=== PATIENT | female | born 1945 | race Caucasian/White ===

== ENCOUNTER 2021-08-25 07:01 | Observation (INO) | payer MEDICARE, SELFPAY ==
[2021-08-25] VITALS (8 sets, daily range): BP systolic 126–166; BP diastolic 60–94; PULSE 60–75; RESP 16–18; TEMP 36.4–37.1; O2SAT 99–100
--- NOTE | ~2021-08-25 | US_ITS ---
EXAMINATION: US carotid duplex BI DATE: 08/25/2021 15:15 INDICATION: Facial weakness. TECHNIQUE: Grayscale, color Doppler, and pulsed Doppler images of the cervical carotid arteries were obtained. The degree of vessel stenosis is placed in one of the following categories: normal, <50%, 5 0-69%, >=70% but less than near-occlusion, near-occlusion, or total occlusion. Note that percent sten osis relative to normal distal artery lumen diameter is indirectly measured from velocity measurement s as described by Carmelo, et al. Radiology 2003; 229:340-346. COMPARISON: None. FINDINGS: RIGHT: The right common carotid artery (CCA) peak systolic velocity (PSV) is 94 cm/s. The right internal car otid artery (ICA) PSV is 89 cm/s. The right ICA end-diastolic velocity (EDV) is 18 cm/s. The right IC A/CCA PSV ratio is 1.0. Grayscale and color Doppler images yield an estimate of <50% diameter reducti on from plaque in the ICA. There is antegrade flow in the right vertebral artery. LEFT: The left CCA PSV is 89 cm/s. The left ICA PSV is 95 cm/s. The left ICA EDV is 20 cm/s. The left ICA/C CA PSV ratio is 1.4. Grayscale and color Doppler images yield an estimate of <50% diameter reduction from plaque in the ICA. There is antegrade flow in the left vertebral artery. IMPRESSION: 1. <50% stenosis in the right internal carotid artery. 2. <50% stenosis in the left internal carotid artery. Reviewed, dictated and finalized at location A.
--- NOTE | ~2021-08-25 | CT_ITS ---
EXAMINATION: CT abdomen pelvis wo con DATE: 08/25/2021 09:11 INDICATION: Nausea and vomiting TECHNIQUE: Computed tomography (CT) of the abdomen and pelvis was performed without intravenous contr ast. The dose-length product (DLP) was 266.52 mGy-cm. Automated exposure control and iterative recons truction technique were employed. COMPARISON: None FINDINGS: Minimal dependent atelectasis is present in the lung bases. The heart size is normal. There is calcified coronary artery atherosclerosis. A small sliding hiatal hernia is present. There appear s to be a lipoma of the distal esophagus, possibly in the wall of the distal esophagus. The gallbladd er is surgically absent. There is mild enlargement of the common bile duct and central intrahepatic d ucts which is likely due to post cholecystectomy state. Within the limitations of noncontrast examina tion, the liver, spleen, and adrenal glands are normal. There appear to be cystic lesions of the panc reas measuring up to 12 mm. 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 Th e kidneys are unremarkable. No pathologically enlarged abdominal or pelvic lymph nodes are identified . There is a large volume of stool in the rectum. There is antegrade intramedullary augusta and interlock ing intratrochanteric screw fixation of the left femur. There is no free intraperitoneal gas or evide nce of bowel obstruction. There is moderate lumbar spondylosis at L4-5. There are age-indeterminate b urst fractures of T12 and L1. IMPRESSION: 1. Fecal impaction of the rectum. 2. 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 3. Probable small cystic lesions of the pancreas. The differential diagnosis includes pseudocyst, int raductal papillary mucinous neoplasm (IPMN), mucinous cystic neoplasm (MCN), and the less common sero us cystadenoma and neuroendocrine tumor. Correlate for history of pancreatitis. Follow-up pancreas pr otocol CT or MRI in two years is recommended. 4. Indeterminate burst fractures of T12 and L1. Reviewed, dictated and finalized at location A. IMPRESSION: 1. Fecal impaction of the rectum. 2. 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 3. Probable small cystic lesions of the pancreas. The differential diagnosis in cludes pseudocyst, intraductal papillary mucinous neoplasm (IPMN), mucinous cys tic neoplasm (MCN), and the less common serous cystadenoma and neuroendocrine t umor. Correlate for history of pancreatitis. Follow-up pancreas protocol CT or MRI in two years is recommended. 4. Indeterminate burst fractures of T12 and L1.
--- NOTE | ~2021-08-25 | CT_ITS ---
EXAMINATION: CT brain wo con INDICATION: Dizziness and frequent falls COMPARISON: None TECHNIQUE: Standard unenhanced head CT. The dose-length product (DLP) was 605.33 mGy-cm. The mA was a djusted according to patient size. Iterative reconstruction technique was employed. FINDINGS: There is no acute intraparenchymal hemorrhage. No evidence of mass lesion. No evidence of a cute infarction. There is an old lacunar infarct of the right basal ganglia. There is mild periventri cular and subcortical hypodensity probably related to small vessel ischemic disease. There is mild pr ominence of the sulci and ventricles related to cerebral atrophy. Intracranial calcified cerebral ath erosclerosis is noted. There are no extra-axial collections. There is no mass effect or midline shift . Changes in the globes are likely from ocular lens surgery. There is mild mucosal thickening of the paranasal sinuses. IMPRESSION: 1. No acute intracranial abnormality. 2. Age related findings. Reviewed, dictated and finalized at location A.
--- NOTE | ~2021-08-25 | XR_ITS ---
EXAMINATION: XR barium swallow modified DATE: 08/26/2021 14:08 INDICATION: Dysphagia. TECHNIQUE: The patient was given barium-containing material of multiple consistencies to swallow by jan sloiman speech pathologist while I performed fluoroscopy. Dose-area product was 100 Gy-cm2. FINDINGS: Oral Stage: Within functional limits Pharyngeal Phase: Reduced laryngeal elevation Piriform sinus residue, mild Cervical/Esophageal Stage: Within functional limits IMPRESSION: Modified esophagram findings as above. Please [facility]. Reviewed, dictated and finalized at Location A. Reviewed, dictated and finalized at location A. IMPRESSION: Modified esophagram findings as above. Please refer to the speech t herapy report for specific recommendations.
--- NOTE | ~2021-08-25 | MR_ITS ---
EXAMINATION: MR brain/brain stem wo/w con DATE: 08/26/2021 12:56 INDICATION: Cerebral vascular accident. TECHNIQUE: Magnetic resonance imaging (MRI) of the abdomen was performed without and with 13 mL Multi Evelin intravenous contrast. COMPARISON: Head CT 04/27/2021 FINDINGS: There are foci of old blood products in right occipital lobe. There is an old infarct in right thalam us. There is a small old infarct in right internal capsule. There are scattered areas of nonspecific increased T2-weighted signal intensity in the cerebral white matter and simon. There is no acute ische cristi infarct or abnormal mass lesion. The ventricles are normal in size. The mastoid air cells are nor mal. There is mild mucosal thickening in the paranasal sinuses. There are likely changes of ocular le ns replacement surgeries. IMPRESSION: 1. 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 2. Moderate nonspecific cerebral white matter disease and pontine disease, which likely represents ch ronic small vessel ischemic disease. Reviewed, dictated and finalized at location A. IMPRESSION: 1. 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 2. Moderate nonspecific cerebral white matter disease and pontine disease, whic h likely represents chronic small vessel ischemic disease.
[2021-08-25 07:51] LABS: Lactic Acid Reflex 1.5 mmol/L (0.7-2.0)
[2021-08-25 07:52] LABS: Alanine Aminotransferase 10 U/L (6-35); Albumin Level 3.3 g/dL (3.5-5.1); Alkaline Phosphatase 71 U/L (38-126); Anion Gap 3 mmol/L (8-16); Aspartate Amino Transferase 18 U/L (14-36); Bilirubin,Total 0.2 mg/dL (0.2-1.3); Blood Urea Nitrogen 14 mg/dL (7-17); Calcium 8.8 mg/dL (8.4-10.2); Carbon Dioxide 28 mmol/L (22-30); Chloride 107 mmol/L (98-107); Estimated CRCL calculation 42 ml/min; Estimated Glomerular Filt Rate > 60; Glucose 110 mg/dL (65-110); Lipase 73 U/L (23-300); Potassium 3.5 mmol/L (3.4-5.0); Sodium 138 mmol/L (137-145)
--- NOTE | 2021-08-25 07:55 | ED.GENADULT ---
HPI - General Adult General Chief complaint: Nausea/Vomiting/Diarrhea Stated complaint: confused History of Present Illness HPI narrative: 75-year-old female history of dementia presenting to the emergency department from home for evaluation of nausea vomiting and constipation. Patient states that the symptoms started Thursday morning and have persisted. Patient denies any associate abdominal pain. Family states that the patient does have a significant history of falls and injuries. Family states that for the last 2 weeks the patient has been living at home with them. Daughter states that she feels she is unable to care for the patient at home at this time. Patient does have worsening dementia. Patient had been on medications for her dementia but due to her noncompliance the medication was stopped. Related Data Allergies Allergy/AdvReac Type Severity Reaction Status Date / Time sulfamethoxazole Allergy Intermediate RASH Verified 08/25/21 12:28 trimethoprim Allergy Intermediate RASH Verified 08/25/21 12:28 Review of Systems Review of Systems: CONSTITUTIONAL: Denies fever, chills, or sweats. EYES: Denies visual changes, redness, or discharge. ENT: Denies rhinorrhea, congestion, sore throat, or otalgia. CARDIOVASCULAR: Denies chest pain, palpitations, or edema. RESPIRATORY: Denies cough or dyspnea. GASTROINTESTINAL: Denies abdominal pain but has had intermittent nausea and constipation GENITOURINARY: Denies dysuria or hematuria. SKIN: Denies rash or itching. MUSCULOSKELETAL: Denies back pain, joint pain, or myalgia. NEUROLOGIC: Headache PSYCHIATRIC: Worsening dementia [facility] Past Medical History Medical History (Updated 08/25/21 @ 18:18 by Feliciano Marques MD) Coronary artery disease Dementia Surgical History Surgical History (Updated 08/25/21 @ 14:53 by Ely Delacruz APRN) History of appendectomy History of cataract removal with insertion of prosthetic lens History of cholecystectomy History of oophorectomy, unilateral History of total hip replacement Stented coronary artery Family History Family History (Updated 08/25/21 @ 15:09 by Li Farfan RN) Father Myocardial infarction complications Lung cancer Mother Diverticula of intestine Hypertension Diabetes mellitus Social History Social History (Updated 08/25/21 @ 14:54 by Ely Delacruz APRN) Smoking packs per day: 2 Smoking cigarettes per day: 40.0 Years smoked: 60 Smoking pack-years: 120.00 Smoking status: Current every day smoker Tobacco type: cigarettes Alcohol intake: never Substance use: never Spiritual care concerns: No Exam Narrative: APPEARANCE: Well appearing, no pain, no distress, well-nourished. HEAD: normocephalic, atraumatic. EYES: PERRLA/EOMI, conjunctivae clear. NECK: Supple. No adenopathy, no masses. RESPIRATORY: Airway patent, respirations nonlabored. Clear to auscultation bilaterally, no rales, rhonchi, wheezing. CARDIOVASCULAR: Regular rate and rhythm without murmurs rubs or gallops. ABDOMINAL: Soft, normal bowel sounds, some left lower quadrant tenderness to palpation. No rebound, no guarding. MUSCULOSKELETAL: Moves all extremities. Strength/ROM intact, No edema, No calf tenderness. NEURO: Alert. Left-sided facial droop. No other neurologic deficit noted SKIN: Warm, dry. Normal Color Course Course Emergency Course: CT scan showed fecal impaction of the rectum. Upon returning from CT patient did have a large bowel movement. On reexamination patient has no palpated stool in the rectum. Patient continues to deny abdominal pain. Patient does have some nausea but states she does feel improved. Family will be updated on the need for follow-up for her pancreatic cyst. Patient will be provided medication for nausea control. She will be updated on reasons to return to the emergency department. Patient is still having dizziness and nausea. Patient was unable to ambulate at baseline. Akash
[2021-08-25 07:56] LABS: Basophils Percent Auto 0.5 % (0.2-1.2); Eosinophils Absolute Auto 0.1 K/mm3 (0-0.3); Eosinophils Percent Auto 0.8 % (0-4.4); Hematocrit 40.1 % (37.0-47.0); Hemoglobin 12.9 g/dL (12.0-15.0); Immature Granulocyte Absolute 0.03 K/mm3 (0.00-0.031); Immature Granulocyte Percent A 0.4 % (0-0.5); Lymphocytes Absolute Auto 1.35 K/mm3 (0.9-3.2); Lymphocytes Percent Auto 17.5 % (18.3-44.2); Mean Corpuscular HGB Conc 32.2 g/dl (32-36); Mean Corpuscular Hemoglobin 31.4 pg (26-34); Mean Corpuscular Volume 97.6 fl (80-100); Mean Platelet Volume 11.2 fl (7.4-10.4); Monocytes Absolute Auto 0.9 K/mm3 (0.1-0.6); Monocytes Percent Auto 12.1 % (2.6-8.5); Neutrophils Absolute Auto 5.3 K/mm3 (1.3-6.7); Neutrophils Percent Auto 68.7 % (45.5-73.1); Platelet Count Result 220 k/mm3 (150-375); Red Blood Count 4.11 M/mm3 (4.2-5.4); Red Cell Distribution Width 14.1 % (11.5-14.5); White Blood Count 7.7 K/mm3 (4.5-10.0)
[2021-08-25 08:08] LABS: Appearance Urine Clear (Clear); Bilirubin Urine Negative (Negative); Blood Urine Negative (Negative); Color Urine Yellow (Yellow); Glucose Urine UA Negative (Negative); Ketones Urine Negative (Negative); Leukocyte Esterase Ur Negative LEU/UL (Negative); Nitrate Urine Negative (Negative); Protein Urine Negative (Negative); Specific Grav Ur 1.025 (1.001-1.035); Urobilinogen Urine 0.2 mg/dL (<2.0); pH Urine 5.5 (5.0-9.0)
[2021-08-25] MEDS: ONDANSETRON INJ 4 MG/2 ML VIAL IV PUSH (08:09)
[2021-08-25 08:11] LABS: Add Urine Microscopic? NO
--- NOTE | 2021-08-25 09:57 | PC.NURSE ---
pt had extra large BM
[2021-08-25] MEDS: SODIUM CHLORIDE 0.9% IV 500 ML 999 ML IV CONT (10:47)
[2021-08-25] MEDS: MECLIZINE HCL 25 MG TABLET PO (10:52)
[2021-08-25] MEDS: METOCLOPRAMIDE HCL INJ 10 MG/2 ML VIAL IV PUSH (10:53)
[2021-08-25] MEDS: ASPIRIN 81 MG CHEWABLE TABLET 324 MG PO (12:28)
--- NOTE | 2021-08-25 13:55 | PCCCNOTE ---
Addendum entered by Kathy Garcia RN 08/25/21 18:15: Copies made of Healthcare POA and provided to patient and daughter Antoine. Original placed in the chart. Addendum entered by Kathy Garcia RN 08/25/21 18:08: Referrals fax'd to [facility], [facility], [facility], [facility], [facility] (Cover sheet states that patient is not vaccinated) Addendum entered by Kathy Garcia RN 08/25/21 17:40: Patient has been admitted to the floor, met with patient and daughter at bedside. Per daughter Atnoine, patient is very RED CLIFF. Antoine states that her dementia has gotten worse and she moved her in with her about two weeks ago but does not think she can safely continue to provide oxyacetylene burner care in her own home. They have toured [facility] for assisted living but no decisions. Explained that PT/OT will evaluate tomorrow and see what their recommendations are, agreeable for SNF referrals. Understands that insurance will have to approve. Would like referrals sent to [facility] and [facility] to start with. Patient is NOT covid vaccinated, explained that a lot of the faciliites require vaccine, but we will send to several around the area and go from there. Antoine would also like to complete Healthcare POA paperwork today if possible. Patient states her full name and that she is in the hospital. Identifies Antoine as her daughter and would like to assign her as her Healthcare POA. Paperwork completed by patient, and daughter Antoine Jacobsen with [employer] as Witness. Explained that there will be another care assistant following tomorrow. PASSR completed, No level II required. Original Note: Referral received from ER for [facility] placement. Patient is being admitted for observation. Met with patient in ED Room 4. Patient states that she her son lives with her but his girlfriend lives right behind her so he is there more often. Daughter Antoine lives near-by but she can't remember where she lives. Patient requests that care assistant repeat herself often, unsure if she is RED CLIFF or confused with our conversastion. Patient states that she has a walker but she doesn't need to use it all the time. Patient states that she does all her own cooking and does not receive any in-home services. Patient states her daughter's name is Antoine, her son is Charlie, and her sister is Adrianna. Advised that I would come and talk with her daughter when she got back, patient is confused on where her daughter went as she was just sitting there. Phone call to Antoine at [phone], no answer left vm requesting a return call.
--- NOTE | 2021-08-25 14:33 | PC.NURSE ---
This patient, Jewels Lewis, was admitted to 2 Medical Room 241-. Patient/family oriented to hospital policies and general routines including ID bracelet, bed and alarms, visiting hours, pain management, procedures, bathroom and other care routines, personal items, smoking policy, room service/diet, and visiting hours. Information on how to activate the Rapid Response Team has been discussed. Patient/Family are encouraged to report perceived risks to care and to ask questions if they do not understand what they are told or what they should do.
--- NOTE | 2021-08-25 14:36 | PM.IMHP ---
H&P: HPI History of Present Illness Date/Time: Patient was placed observation status for expected length of stay less than 23 hours for management, will plan to re-evaluate tomorrow for improvement. 08/25/21 14:36 Chief Complaint: Nausea/vomiting Narrative: Ms. Lewis is a 75-year-old female who presented emergency room with complaints of nausea, vomiting, and constipation. Patient has an underlying diagnosis of dementia and is unable to give me any significant history. Patient's daughter is at bedside and is assisting with history. Patient's daughter does not extensively know her mother's history. Patient's daughter states the patient began living with her approximately 2 weeks ago and it has been difficult caring for the patient. Patient's daughter states that last night patient complained of constipation and stated she had not had a bowel movement over 2 weeks. Patient's daughter states that she did not know if this was true or not, but did give the patient a laxative to see if this would help. Patient's daughter states the patient then woke her this morning at approximately 6:00 a.m. stating that she was very nauseous and was having abdominal pain. Patient's daughter states that her mother could not hold her head up and the patient did vomit x1. 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 The differential diagnosis includes pseudocyst, intraductal papillary mucinous neoplasm, mucinous cystic neoplasm, and less common serous cystadenoma and neuroendocrine tumor. Correlate for history of pancreatitis. Follow-up pancreas protocol CT or MRI in 2 years is recommended. Patient was also noted to have an indeterminate burst fracture of T12 and L1. After CT scan patient did have a very large bowel movement and was no longer complaining of any abdominal pain. Patient's daughter did state that was noted this morning the patient had a left droop noted to patient's mouth. Patient's daughter denies any weakness to left side on extremities. Patient's daughter states that she has not noted any slurred speech, ataxia, or visual disturbances. Patient's daughter states that the patient does have an underlying history of dementia and is very ?stubborn? and has not followed up with a primary care provider or any type of provider in over 2 years. Patient was supposed to be on medication, but she has not taken anything in over 2 years. Patient's daughter states the only diagnosis that she is aware of is coronary artery disease status post stent placement. Patient's daughter states the patient is supposed to be taking an aspirin and a statin, but has refused to do so for multiple years. Patient's daughter states that she is unaware of any history of hypertension, diabetes mellitus, COPD, or hypo/hyperthyroidism. Review of Systems Review of Systems: I am unable to obtain a full review of systems from patient secondary to underlying dementia. Patient will just state I want to go home. [facility] Past Medical History Medical History (Updated 08/25/21 @ 14:53 by Ely Delacruz APRN) Coronary artery disease Dementia Surgical History Surgical History (Updated 08/25/21 @ 14:53 by Ely Delacruz APRN) History of appendectomy History of cataract removal with insertion of prosthetic lens History of cholecystectomy History of oophorectomy, unilateral History of total hip replacement Stented coronary artery Social History Social History (Updated 08/25/21 @ 14:54 by Ely Delacruz APRN) Smoking packs per day: 2 Smoking cigarettes per day: 40.0 Years smoked: 60 Smoking pack-years: 120.00 Smoking status: Current every day smoker Tobacco type: cigarettes Alcohol intake: never Substance use: never Spiritual care concerns: No Meds Home Medication
[2021-08-25] MEDS: NICOTINE (*PBKC) 21 MG PATCH 1 PATCH TRANSDERM (15:30)
[2021-08-25] MEDS: SODIUM CHLORIDE 0.9% IV 1,000 ML 100 ML IV CONT (15:48)
[2021-08-26] VITALS (9 sets, daily range): BP systolic 129–157; BP diastolic 50–81; PULSE 52–72; RESP 14–17; TEMP 36.3–36.7; O2SAT 93–100
--- NOTE | 2021-08-26 | ECHO_ITS ---
Patient Info Name: Jewels Lewis Age: 75 years : 1945 Gender: Female Ht: 64 in Wt: 149 lbs BSA: 1.76 m2 HR: 72 bpm BP: 129 / 64 mmHg Heart Rhythm: Sinus Rhythm Technical Quality: Fair Exam Date: 08/26/2021 9:42 AM Exam Location: [facility] Patient Status: Outpatient Admit Date: 08/25/2021 Staff Ordering Physician: Humberto Thapa Terrazzo Polisher: Myra Winter RDCS Attending Provider: Delia Murillo MD Referring Physician: Elier MARTINEZ; Exam Type: CA echo doppler w bubble study Study Info Indications - stroke symptoms Complete two-dimensional, color flow and Doppler transthoracic echocardiogram is performed with agitated saline. Contrast/Agitated Saline Contrast/Ag. Saline: Agitated Saline Amount: 20.00 ml Existing IV Access: Yes Summary 1. Left ventricular systolic function is normal, estimated at 60-65%. 2. The left ventricular diastolic function is grade II diastolic dysfunction. 3. Left atrial chamber dimension is mildly enlarged. 4. Interatrial septum not well visualized by color flow and agitated saline imaging. 5. There is mild aortic valve calcification. 6. There is mild aortic valve regurgitation. 7. There is mild mitral valve regurgitation. 8. There is moderate mitral valve calcification. 9. There is mild tricuspid valve regurgitation. 10. No pulmonary hypertension, estimated pulmonary arterial systolic pressure is 35 mmHg. 11. There is mild pulmonic regurgitation. Left Ventricle Left ventricular chamber dimension is normal. Left ventricular systolic function is normal, estimated at 60-65%. There is no increased left ventricular wall thickness. Left ventricular septal wall motion is normal. The left ventricular diastolic function is grade II diastolic dysfunction. Right Ventricle Right ventricular chamber dimension is normal. Right ventricular systolic function is normal. Left Atria Left atrial chamber dimension is mildly enlarged. Right Atria Right atrial chamber dimension is normal. Atrial Septum Interatrial septum not well visualized by color flow and agitated saline imaging. Aortic Valve The aortic valve is trileaflet. There is no aortic valve stenosis. There is mild aortic valve regurgitation. There is mild aortic valve calcification. Pulmonic Valve The pulmonic valve is normal. There is no pulmonic valve stenosis. There is mild pulmonic regurgitation. Mitral Valve The mitral valve has normal leaflets. There is no mitral valve stenosis. There is mild mitral valve regurgitation. There is moderate mitral valve calcification. Tricuspid Valve The tricuspid valve leaflets are normal. There is no significant tricuspid valve stenosis. There is mild tricuspid valve regurgitation. No pulmonary hypertension, estimated pulmonary arterial systolic pressure is 35 mmHg. Pericardium/Pleural The pericardium appears normal. There is no pericardial effusion. Inferior Vena Cava Normal inferior vena cava with >50% collapse upon inspiration consistent with normal right atrial pressure, 10 mmHg. Aorta The aortic root size at the sinus of Valsalva is normal. The prox ascending aorta size is normal. Left Ventricular Outflow Tract Name Value Normal
[2021-08-26] MEDS: SODIUM CHLORIDE 0.9% IV 1,000 ML 100 ML IV CONT (05:03)
[2021-08-26 05:46] LABS: Basophils Percent Auto 0.6 % (0.2-1.2); Eosinophils Absolute Auto 0.1 K/mm3 (0-0.3); Eosinophils Percent Auto 1.1 % (0-4.4); Hemoglobin 12.4 g/dL (12.0-15.0); Immature Granulocyte Absolute 0.02 K/mm3 (0.00-0.031); Immature Granulocyte Percent A 0.3 % (0-0.5); Lymphocytes Absolute Auto 1.56 K/mm3 (0.9-3.2); Lymphocytes Percent Auto 24.6 % (18.3-44.2); Mean Corpuscular HGB Conc 31.8 g/dl (32-36); Mean Corpuscular Hemoglobin 31.2 pg (26-34); Mean Corpuscular Volume 98.2 fl (80-100); Monocytes Absolute Auto 0.7 K/mm3 (0.1-0.6); Monocytes Percent Auto 11.7 % (2.6-8.5); Neutrophils Absolute Auto 3.9 K/mm3 (1.3-6.7); Neutrophils Percent Auto 61.7 % (45.5-73.1); Platelet Count Result 206 k/mm3 (150-375); Red Blood Count 3.97 M/mm3 (4.2-5.4); Red Cell Distribution Width 13.8 % (11.5-14.5); White Blood Count 6.4 K/mm3 (4.5-10.0)
[2021-08-26 05:58] LABS: Anion Gap 1 mmol/L (8-16); Blood Urea Nitrogen 9 mg/dL (7-17); Calcium 8.1 mg/dL (8.4-10.2); Carbon Dioxide 26 mmol/L (22-30); Chloride 107 mmol/L (98-107); Cholesterol 209 mg/dL (0-200); Estimated CRCL calculation 60 ml/min; Estimated Glomerular Filt Rate > 60; Glucose 87 mg/dL (65-110); HDL Direct 45 mg/dL; Magnesium 2.2 mg/dL (1.6-2.3); Potassium 3.7 mmol/L (3.4-5.0); Sodium 134 mmol/L (137-145); Triglycerides 111 mg/dL (<150)
[2021-08-26 06:09] LABS: LDL Cholesterol Direct 116 mg/dL
--- NOTE | 2021-08-26 08:15 | PM.IMPN ---
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 Patient lives with daughter who is no longer able to care for her Will probably need rehab post discharge Care coordination consulted (3) Constipation: Qualifiers: Constipation type: unspecified constipation type Qualified Code(s): K59.00 - Constipation, unspecified Code(s): K59.00 - Constipation, unspecified Status: Acute Assessment and Plan: CT indicated that fecal impaction Constipation resolved after patient had a very large bowel movement in the emergency room (4) Dizziness: Code(s): R42 - Dizziness and giddiness Status: Acute Assessment and Plan: Carotid doppler <50% stenosis Echo EF of 60-65% with grade 2 diastolic dysfunction Meclizine added MRI old infarcts CT head no acute abnormalities Orthostatic blood pressures Qshift today laying 140/60, sitting 145/61, standing 148/81 Does not look to of had an acute stroke Time Spent With Patient Time with patient: Greater than 35 minutes Subjective Date/time seen: 08/26/21 08:15 Interval history: 08/26/21 0815 Patient is seemed to be doing okay. She does have a droop on the left side of her face. Strength is equal bilaterally. She did get very dizzy when they were trying to stand her and she is experiencing some visual changes where she said she looked down the gaytan gets very blurry. She stated that she woke up like this with the droop and weakness. She denies any chest pain, shortness of breath, nausea, vomiting, diarrhea, constipation. Attempting to get orthostatic blood pressures. MRI found 08/25/21? 14:36 Ms. Lewis is a 75-year-old female who presented emergency room with complaints of nausea, vomiting, and constipation.? Patient has an underlying diagnosis of dementia and is unable to give me any significant history.? Patient's daughter is at bedside and is assisting with history.? Patient's daughter does not extensively know her mother's history.? Patient's daughter states the patient began living with her approximately 2 weeks ago and it has been difficult caring for the patient.? Patient's daughter states that last night patient complained of constipation and stated she had not had a bowel movement over 2 weeks.? Patient's daughter states that she did not know if this was true or not, but did give the patient a laxative to see if this would help.? Patient's daughter states the patient then woke her this morning at approximately 6:00 a.m. stating that she was very nauseous and was having abdominal pain.? Patient's daughter states that her mother could not hold her head up and the patient did vomit x1.? 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 The differential diagnosis includes pseudocyst, intraductal papillary mucinous neoplasm, mucinous cystic neoplasm, and less common serous cystadenoma and neuroendocrine tumor.? Correlate for history of pancreatitis.? Follow-up pancreas protocol CT or MRI in 2 years is
[2021-08-26] MEDS: ENOXAPARIN 40 MG/0.4 ML SYRINGE SUB-Q (09:02)
[2021-08-26] MEDS: ATORVASTATIN 10 MG TABLET PO (09:03)
[2021-08-26] MEDS: NICOTINE (*PBKC) 21 MG PATCH 1 PATCH TRANSDERM ×2 (09:07→17:48)
--- NOTE | 2021-08-26 09:25 | PCSTNOTE ---
Please refer to the Bedside Swallow Evaluation in the EMR. Please note, silent aspiration cannot be ruled out at bedside.
--- NOTE | 2021-08-26 10:05 | WPDNEURCNPN ---
Assessment and Plan Assessment and plan (1) Stroke: Code(s): I63.9 - Cerebral infarction, unspecified Status: Acute Plan History of ongoing dementia with sudden change in mental status and observation of the flattening the Luis nasolabial fold even the CT scan of the head is negative with no bleed MRI will be necessary to document the new stroke but considering the general status and neurological status consult 80 of treatment will be recommended Doppler study has been done and after the MRI for the investigation be suggested accordingly Consult date: 08/26/21 Time Seen: 09:00 Reason for consult: Abnormal MRI HPI: Jewels Lewis is a 75 year old female admitted to the hospital through the emergency room on August 25, 2021 where she was brought from home for the complaints of nausea vomiting and constipation in addition to ongoing diagnosis of dementia and also progressively worsening dementia with inability to be taken care at home. Additionally patient does have ongoing history of coronary artery disease, she does have ongoing history of years smoked 60 his smoking pack years 120 and currently everyday smoker, on initial evaluation she was found to have normal vital signs with pulse ox of 99 per nasal cannula oxygen delivery and the blood pressure of 159/86, initial examination documented her to have left-sided facial droop and further evaluation included negative CT scan of the head, negative routine labs, abdomen and pelvic CT scan documented 3.8cm fusiform aneurysm of the infrarenal abdominal aorta and small cystic lesion of the pancreas carotid Doppler studies are negative Review of Systems Review of Systems: All systems reviewed & are unremarkable except as noted in HPI and below PMFSH Past Medical History Medical History Coronary artery disease Dementia Surgical History Surgical History History of appendectomy History of cataract removal with insertion of prosthetic lens History of cholecystectomy History of oophorectomy, unilateral History of total hip replacement Stented coronary artery Family History Family History Father Myocardial infarction complications Lung cancer Mother Diverticula of intestine Hypertension Diabetes mellitus Social History Social History Smoking packs per day: 2 Smoking cigarettes per day: 40.0 Years smoked: 60 Smoking pack-years: 120.00 Smoking status: Current every day smoker Tobacco type: cigarettes Alcohol intake: never Substance use: never Spiritual care concerns: No Meds Home Medications and Allergies Home Medications Medication Instructions Recorded Confirmed Type ondansetron 4 mg disintegrating 4 mg PO Q6H PRN nausea and 08/25/21 Rx tablet vomiting #14 tabs Allergies Allergy/AdvReac Type Severity Reaction Status Date / Time sulfamethoxazole Allergy Intermediate RASH Verified 08/25/21 12:28 trimethoprim Allergy Intermediate RASH Verified 08/25/21 12:28 Vital Signs Vital Signs - 24 hr 08/25/21 10:30 08/25/21 10:31 08/25/21 10:33 Temperature Pulse Rate 60 61 71 Respiratory Rate Blood Pressure 162/60 H 159/64 H 166/94 H Pulse Oximetry Oxygen Delivery 08/25/21 12:12 08/25/21 19:06 08/25/21 20:00 Temperature 37.1 C Pulse Rate 68 75 75 Respiratory Rate 18 16 16 Blood Pressure 153/62 H 126/61 Pulse Oximetry 100 100 100 Oxygen Delivery Room Air 08/26/21 04:05 08/26/21 08:36 08/26/21 08:20 Temperature 36.5 C Pulse Rate 72 Respiratory Rate 17 Blood Pressure 129/64 Pulse Oximetry 94 Oxygen Delivery Room Air Room Air 08/26/21 08:00 Temperature Pulse Rate Respiratory Rate Blood Pressure Pulse Oximetry Oxygen Delivery Room Air Exam Narrative: revealed her to be awak
--- NOTE | 2021-08-26 10:08 | ECG_ITS ---
Measurements Intervals Eleanor Rate: 54 P: 80 SC: 161 QRS: -51 QRSD: 87 T: 23 QT: 426 QTc: 407 Interpretive Statements SINUS BRADYCARDIA LEFT ANTERIOR FASCICULAR BLOCK [QRS AXIS <= -45, QR IN I, RS IN II] MODERATE T-WAVE ABNORMALITY, CONSIDER ANTERIOR ISCHEMIA [-0.1+ mV T WAVE IN V3/V4] ABNORMAL ECG NO PREVIOUS ECG AVAILABLE FOR COMPARISON Electronically Signed On 08-26-2021 10:29:03 CDT by Yonas Daigle M.D.
[2021-08-26] MEDS: ASPIRIN 81 MG CHEWABLE TABLET PO (10:24)
[2021-08-26] MEDS: MECLIZINE HCL 25 MG TABLET PO (16:34)
[2021-08-27] VITALS (8 sets, daily range): BP systolic 126–154; BP diastolic 48–84; PULSE 62–66; RESP 16–20; TEMP 36.4–36.6; O2SAT 94–100
[2021-08-27] MEDS: LORazepam INJ (*CRX) 2 MG/ML VIAL 0.5 MG IV PUSH (04:49)
[2021-08-27 05:33] LABS: Basophils Percent Auto 0.5 % (0.2-1.2); Eosinophils Absolute Auto 0.1 K/mm3 (0-0.3); Eosinophils Percent Auto 2.1 % (0-4.4); Hematocrit 39.1 % (37.0-47.0); Hemoglobin 12.9 g/dL (12.0-15.0); Immature Granulocyte Absolute 0.01 K/mm3 (0.00-0.031); Immature Granulocyte Percent A 0.2 % (0-0.5); Lymphocytes Absolute Auto 1.56 K/mm3 (0.9-3.2); Lymphocytes Percent Auto 25.7 % (18.3-44.2); Mean Corpuscular Hemoglobin 31.3 pg (26-34); Mean Corpuscular Volume 94.9 fl (80-100); Monocytes Absolute Auto 0.8 K/mm3 (0.1-0.6); Monocytes Percent Auto 13.7 % (2.6-8.5); Neutrophils Absolute Auto 3.5 K/mm3 (1.3-6.7); Neutrophils Percent Auto 57.8 % (45.5-73.1); Platelet Count Result 219 k/mm3 (150-375); Red Blood Count 4.12 M/mm3 (4.2-5.4); Red Cell Distribution Width 13.5 % (11.5-14.5); White Blood Count 6.1 K/mm3 (4.5-10.0)
[2021-08-27 05:41] LABS: Alanine Aminotransferase 10 U/L (6-35); Albumin Level 3.1 g/dL (3.5-5.1); Alkaline Phosphatase 74 U/L (38-126); Anion Gap 1 mmol/L (8-16); Aspartate Amino Transferase 22 U/L (14-36); Bilirubin,Total 0.4 mg/dL (0.2-1.3); Blood Urea Nitrogen 10 mg/dL (7-17); Calcium 8.5 mg/dL (8.4-10.2); Carbon Dioxide 30 mmol/L (22-30); Chloride 104 mmol/L (98-107); Estimated CRCL calculation 52 ml/min; Estimated Glomerular Filt Rate > 60; Glucose 81 mg/dL (65-110); Magnesium 2.2 mg/dL (1.6-2.3); Potassium 3.7 mmol/L (3.4-5.0); Sodium 135 mmol/L (137-145)
[2021-08-27] MEDS: ASPIRIN 81 MG CHEWABLE TABLET PO (08:09)
[2021-08-27] MEDS: MECLIZINE HCL 25 MG TABLET PO ×2 (08:09→16:29)
[2021-08-27] MEDS: ENOXAPARIN 40 MG/0.4 ML SYRINGE SUB-Q (08:09)
[2021-08-27] MEDS: ATORVASTATIN 10 MG TABLET PO (08:09)
[2021-08-27] MEDS: NICOTINE (*PBKC) 21 MG PATCH 1 PATCH TRANSDERM (08:09)
[2021-08-27] MEDS: SODIUM CHLORIDE 0.9% IV 1,000 ML 100 ML IV CONT ×3 (08:10→08:51)
[2021-08-27] MEDS: ACETAMINOPHEN 325 MG TABLET 650 MG PO (08:48)
--- NOTE | 2021-08-27 09:30 | P.PNIM_ITS ---
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 * Patient lives with daughter who is no longer able to care for her * Will probably need rehab post discharge * Care coordination consulted (3) Constipation: Qualifiers: Constipation type: unspecified constipation type Qualified Code(s): K59.00 - Constipation, unspecified Code(s): K59.00 - Constipation, unspecified Status: Acute Assessment and Plan: * CT indicated that fecal impaction * Constipation resolved after patient had a very large bowel movement in the emergency room (4) BPPV (benign paroxysmal positional vertigo): Code(s): H81.10 - Benign paroxysmal vertigo, unspecified ear Status: Acute Assessment and Plan: * Carotid doppler <50% stenosis * Echo EF of 60-65% with grade 2 diastolic dysfunction * Meclizine added * MRI old infarcts * CT head no acute abnormalities * Orthostatic blood pressures Qshift today laying 140/60, sitting 145/61, standing 148/81 * Does not look to of had an acute stroke * Could be from a recent infection, since the TM look opaque and bulgous * Could be BPPV Time Spent With Patient Time with patient: Greater than 35 minutes Subjective Date/time seen: 08/27/21929 Interval history: 08/27/21929 Patient is doing well today. She is still stating that she is a little dizzy but it is not that bad. She is also stating that she has a bad headache and is just very tired. She is denying any chest pain, shortness of breath, nausea, vomiting, diarrhea, constipation, weakness or fatigue. Ears upon exam did appear to be bulgous, could be why she is dizzy, will place her on augmentin for 5 days. 08/26/21 0815 Patient is seemed to be doing okay. She does have a droop on the left side of her face. Strength is equal bilaterally. She did get very dizzy when they were trying to stand her and she is experiencing some visual changes where she said she looked down the gaytan gets very blurry. She stated that she woke up like this with the droop and weakness. She denies any chest pain, shortness of breath, nausea, vomiting, diarrhea, constipation. Attempting to get orthostatic blood pressures. MRI found 08/25/21? 14:36 Ms. Lewis is a 75-year-old female who presented emergency room with complaints of nausea, vomiting, and constipation.? Patient has an underlying diagnosis of dementia and is unable to give me any significant history.? Patient's daughter is at bedside and is assisting with history.? Patient's daughter does not extensively know her mother's history.? Patient's daughter states the patient began living with her approximately 2 weeks ago and it has been difficult caring for the patient.? Patient's daughter states that last night patient felipe
--- NOTE | 2021-08-27 09:30 | PM.IMPN ---
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 Patient lives with daughter who is no longer able to care for her Will probably need rehab post discharge Care coordination consulted (3) Constipation: Qualifiers: Constipation type: unspecified constipation type Qualified Code(s): K59.00 - Constipation, unspecified Code(s): K59.00 - Constipation, unspecified Status: Acute Assessment and Plan: CT indicated that fecal impaction Constipation resolved after patient had a very large bowel movement in the emergency room (4) BPPV (benign paroxysmal positional vertigo): Code(s): H81.10 - Benign paroxysmal vertigo, unspecified ear Status: Acute Assessment and Plan: Carotid doppler <50% stenosis Echo EF of 60-65% with grade 2 diastolic dysfunction Meclizine added MRI old infarcts CT head no acute abnormalities Orthostatic blood pressures Qshift today laying 140/60, sitting 145/61, standing 148/81 Does not look to of had an acute stroke Could be from a recent infection, since the TM look opaque and bulgous Could be BPPV Time Spent With Patient Time with patient: Greater than 35 minutes Subjective Date/time seen: 08/27/21929 Interval history: 08/27/21929 Patient is doing well today. She is still stating that she is a little dizzy but it is not that bad. She is also stating that she has a bad headache and is just very tired. She is denying any chest pain, shortness of breath, nausea, vomiting, diarrhea, constipation, weakness or fatigue. Ears upon exam did appear to be bulgous, could be why she is dizzy, will place her on augmentin for 5 days. 08/26/21 0815 Patient is seemed to be doing okay. She does have a droop on the left side of her face. Strength is equal bilaterally. She did get very dizzy when they were trying to stand her and she is experiencing some visual changes where she said she looked down the gaytan gets very blurry. She stated that she woke up like this with the droop and weakness. She denies any chest pain, shortness of breath, nausea, vomiting, diarrhea, constipation. Attempting to get orthostatic blood pressures. MRI found 08/25/21? 14:36 Ms. Leiws is a 75-year-old female who presented emergency room with complaints of nausea, vomiting, and constipation.? Patient has an underlying diagnosis of dementia and is unable to give me any significant history.? Patient's daughter is at bedside and is assisting with history.? Patient's daughter does not extensively know her mother's history.? Patient's daughter states the patient began living with her approximately 2 weeks ago and it has been difficult caring for the patient.? Patient's daughter states that last night patient complained of constipation and stated she had not had a bowel movement over 2 weeks.? Patient's daughter states that she did not know if this was true or not, but did give the patient a laxative to see if this would help.? Patient's daughter states the patient then woke her this morning at approximately 6:00 a.m. stating that she was very nauseous and was having abdominal pain.? Patient's daughter states that her mot
[2021-08-27] MEDS: AMOXICILLIN/CLAVULANATE K 875-125 MG TAB 1 TABLET PO ×2 (09:35→20:13)
[2021-08-27] MEDS: SENNA/DOCUSATE SODIUM TABLET 1 TAB PO (09:52)
[2021-08-27] MEDS: polyethylene glycoL 3350 17 GM POWD.PACK PO (09:52)
--- NOTE | 2021-08-27 10:44 | PM.DS ---
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 Patient lives with daughter who is no longer able to care for her Will probably need rehab post discharge Care coordination consulted (3) Constipation: Qualifiers: Constipation type: unspecified constipation type Qualified Code(s): K59.00 - Constipation, unspecified Code(s): K59.00 - Constipation, unspecified Status: Acute Assessment and Plan: CT indicated that fecal impaction Constipation resolved after patient had a very large bowel movement in the emergency room (4) BPPV (benign paroxysmal positional vertigo): Code(s): H81.10 - Benign paroxysmal vertigo, unspecified ear Status: Acute Assessment and Plan: Carotid doppler <50% stenosis Echo EF of 60-65% with grade 2 diastolic dysfunction Meclizine added MRI old infarcts CT head no acute abnormalities Orthostatic blood pressures Qshift today laying 140/60, sitting 145/61, standing 148/81 Does not look to of had an acute stroke Could be from a recent infection, since the TM look opaque and bulgous Could be BPPV DS: Summary Hospital Course Hospital Course: Patient is a 75-year-old female with a past medical history of CAD and dementia who presented to the ED with complaints of facial droop and nausea vomiting. Head CT was performed did not show any acute abnormality MRI was performed and showed chronic infarcts. Carotid Dopplers were performed and showed less than 50% stenosis echo was performed grade 2 diastolic dysfunction with an EF of 60 65%. Neurology was consulted and determined this was a TIA. Patient was also complaining of dizziness. Orthostatic blood pressures were negative for hypotension. Tympanic membrane examination did show some bulging and opacity. Patient stated that her dizziness has not been as bad. PT and OT have also been working with the patient. Lipid panel was drawn and did show slightly elevated triglycerides. CT did indicate constipation patient to stool softeners and was successful in having a bowel movement in the ED which did help her make her feel a lot better. Today patient states she has headache and tired. She states that she does still have some dizziness however the meclizine has been helping her. Patient denies any chest pain, shortness of breath, nausea, vomiting, diarrhea, constipation, weakness or fatigue. Patient is stable for discharge at this time and will be going to a rehab for further strength training. Status at Discharge Functional status at discharge: uses cane/walker Overall status at discharge: patient is progressing back to baseline Time Spent with Patient Time attestation: Total time spent providing and/or coordinating discharge services:36 minutes Time spent: Greater than 30 minutes Specific discharge activities: Diagnostic testing, chart review, developing a treatment plan, education, care coordination documentation, physical exam, result review Exam Const: General: cooperative, no acute distress, well developed, alert, awake, ill appearing and tired appearin
[2021-08-27] MEDS: NICOTINE (*PBKC) 4 MG GUM PO (11:09)
[2021-08-27 14:39] LABS: EDCOVIDSCREEN Negative (Negative)
[2021-08-28] MEDS: NICOTINE (*PBKC) 4 MG GUM PO (04:36)
[2021-08-28 05:34] LABS: Basophils Percent Auto 0.8 % (0.2-1.2); Eosinophils Absolute Auto 0.1 K/mm3 (0-0.3); Eosinophils Percent Auto 2.7 % (0-4.4); Hematocrit 39.2 % (37.0-47.0); Hemoglobin 12.7 g/dL (12.0-15.0); Immature Granulocyte Absolute 0.01 K/mm3 (0.00-0.031); Immature Granulocyte Percent A 0.2 % (0-0.5); Lymphocytes Absolute Auto 1.75 K/mm3 (0.9-3.2); Lymphocytes Percent Auto 34.2 % (18.3-44.2); Mean Corpuscular HGB Conc 32.4 g/dl (32-36); Mean Corpuscular Hemoglobin 31.4 pg (26-34); Mean Platelet Volume 11.2 fl (7.4-10.4); Monocytes Absolute Auto 0.8 K/mm3 (0.1-0.6); Monocytes Percent Auto 14.6 % (2.6-8.5); Neutrophils Absolute Auto 2.4 K/mm3 (1.3-6.7); Neutrophils Percent Auto 47.5 % (45.5-73.1); Platelet Count Result 211 k/mm3 (150-375); Red Blood Count 4.04 M/mm3 (4.2-5.4); Red Cell Distribution Width 13.5 % (11.5-14.5); White Blood Count 5.1 K/mm3 (4.5-10.0)
[2021-08-28 05:42] LABS: Alanine Aminotransferase 9 U/L (6-35); Albumin Level 3.3 g/dL (3.5-5.1); Alkaline Phosphatase 67 U/L (38-126); Anion Gap 2 mmol/L (8-16); Aspartate Amino Transferase 21 U/L (14-36); Bilirubin,Total 0.4 mg/dL (0.2-1.3); Blood Urea Nitrogen 10 mg/dL (7-17); Calcium 8.4 mg/dL (8.4-10.2); Carbon Dioxide 29 mmol/L (22-30); Chloride 105 mmol/L (98-107); Estimated CRCL calculation 52 ml/min; Estimated Glomerular Filt Rate > 60; Glucose 86 mg/dL (65-110); Magnesium 2.1 mg/dL (1.6-2.3); Potassium 3.8 mmol/L (3.4-5.0); Sodium 136 mmol/L (137-145)
[2021-08-28 06:00] VITALS: BP 143/59; PULSE 59; RESP 12; TEMP 36.4; O2SAT 99
[2021-08-28] MEDS: AMOXICILLIN/CLAVULANATE K 875-125 MG TAB 1 TABLET PO (08:51)
[2021-08-28] MEDS: SENNA/DOCUSATE SODIUM TABLET 1 TAB PO (08:51)
[2021-08-28] MEDS: ASPIRIN 81 MG CHEWABLE TABLET PO (08:51)
[2021-08-28] MEDS: ENOXAPARIN 40 MG/0.4 ML SYRINGE SUB-Q (08:51)
[2021-08-28] MEDS: MECLIZINE HCL 25 MG TABLET PO ×2 (08:51→16:35)
[2021-08-28] MEDS: ATORVASTATIN 10 MG TABLET PO (08:51)
[2021-08-28] MEDS: polyethylene glycoL 3350 17 GM POWD.PACK PO (08:51)
[2021-08-28] MEDS: NICOTINE (*PBKC) 21 MG PATCH 1 PATCH TRANSDERM (08:51)
[2021-08-28 10:59] VITALS: BP 150/74; PULSE 71; O2SAT 100
[2021-08-28 11:04] VITALS: BP 162/71; PULSE 71; O2SAT 100
[2021-08-28 11:08] VITALS: BP 132/86; PULSE 94; O2SAT 100
--- NOTE | 2021-08-28 11:25 | WPDNEURCNPN ---
Consult date: 08/28/21 HPI: Jewels Lewis is a 75 year old female [facility] Past Medical History Medical History Coronary artery disease Dementia Surgical History Surgical History History of appendectomy History of cataract removal with insertion of prosthetic lens History of cholecystectomy History of oophorectomy, unilateral History of total hip replacement Stented coronary artery Family History Family History Father Myocardial infarction complications Lung cancer Mother Diverticula of intestine Hypertension Diabetes mellitus Social History Social History Smoking packs per day: 2 Smoking cigarettes per day: 40.0 Years smoked: 60 Smoking pack-years: 120.00 Smoking status: Current every day smoker Tobacco type: cigarettes Alcohol intake: never Substance use: never Spiritual care concerns: No Meds Home Medications and Allergies Home Medications Medication Instructions Recorded Confirmed Type ondansetron 4 mg disintegrating 4 mg PO Q6H PRN nausea and 08/25/21 Rx tablet vomiting #14 tabs Allergies Allergy/AdvReac Type Severity Reaction Status Date / Time sulfamethoxazole Allergy Intermediate RASH Verified 08/25/21 12:28 trimethoprim Allergy Intermediate RASH Verified 08/25/21 12:28 Vital Signs Vital Signs - 24 hr 08/27/21 14:00 08/27/21 20:31 08/27/21 20:00 Temperature 36.4 C 36.6 C Pulse Rate 63 66 66 Respiratory Rate 18 20 20 Blood Pressure 139/61 145/48 H Pulse Oximetry 94 100 100 Oxygen Delivery Room Air 08/27/21 21:06 08/28/21 06:00 08/28/21 08:50 Temperature 36.4 C Pulse Rate 59 L Respiratory Rate 12 Blood Pressure 143/59 H Pulse Oximetry 99 99 Oxygen Delivery Room Air Room Air 08/28/21 10:59 08/28/21 11:04 08/28/21 11:08 Temperature Pulse Rate 71 71 94 Respiratory Rate Blood Pressure 150/74 H 162/71 H 132/86 Pulse Oximetry 100 100 100 Oxygen Delivery Results Labs CBC & Chem 7: 08/28/21 05:06 08/28/21 05:06 Labs: Short CBC 08/28/21 Range/Units 05:06 WBC 5.1 (4.5-10.0) K/mm3 Hgb 12.7 (12.0-15.0) g/dL Hct 39.2 (37.0-47.0) % Plt Count 211 (150-375) k/mm3 BMP 08/28/21 05:06 Sodium 136 L Potassium 3.8 Chloride 105 Carbon Dioxide 29 BUN 10 Creatinine 0.70 Glucose 86 Calcium 8.4 Liver Function 08/28/21 Range/Units 05:06 Total Bilirubin 0.4 (0.2-1.3) mg/dL AST 21 (14-36) U/L ALT 9 (6-35) U/L Alkaline Phosphatase 67 (38-126) U/L Albumin 3.3 L (3.5-5.1) g/dL Quality VTE Prophylaxis VTE prophylaxis: mechanical ordered and pharmacologic ordered
--- NOTE | 2021-08-28 11:26 | WPDNEUROPN ---
Subjective Date/time seen: 08/28/21 11:26 Review of Systems Review of Systems: All systems reviewed & are unremarkable except as noted in HPI and below Exam Narrative: no change in the neurological examination Objective Data Vital Signs Vital Signs: Vital Signs - 24 hr 08/27/21 14:00 08/27/21 20:31 08/27/21 20:00 Temperature 36.4 C 36.6 C Pulse Rate 63 66 66 Respiratory Rate 18 20 20 Blood Pressure 139/61 145/48 H Pulse Oximetry 94 100 100 Oxygen Delivery Room Air 08/27/21 21:06 08/28/21 06:00 08/28/21 08:50 Temperature 36.4 C Pulse Rate 59 L Respiratory Rate 12 Blood Pressure 143/59 H Pulse Oximetry 99 99 Oxygen Delivery Room Air Room Air 08/28/21 10:59 08/28/21 11:04 08/28/21 11:08 Temperature Pulse Rate 71 71 94 Respiratory Rate Blood Pressure 150/74 H 162/71 H 132/86 Pulse Oximetry 100 100 100 Oxygen Delivery Intake/Output Intake/Output: Intake & Output 08/25/21 08/26/21 08/27/21 08/28/21 23:59 23:59 23:59 23:59 Intake Total 600 2372 3202 1190 Output Total 0 500 Balance 600 2372 3202 690 Meds/Results Medications: Active Medications Generic Name Dose Route Start Last Admin Trade Name Freq PRN Reason Stop Dose Admin Acetaminophen 650 mg 08/27/21 08:41 08/27/21 08:48 Acetaminophen 325 Mg Tablet PO 650 mg Q6H PRN Administration Mild Pain (1-3) or Fever Amoxicillin/Clavulanate Potassium 1 tablet 08/27/21 09:25 08/28/21 08:51 Amoxicillin/Clavulanate K 875-125 Mg Tab PO 1 tablet Q12HR KAYLA Administration Aspirin 81 mg 08/26/21 08:00 08/28/21 08:51 Aspirin 81 Mg Chewable Tablet PO 81 mg DAILY@0800 KAYLA Administration Atorvastatin Calcium 10 mg 08/26/21 09:00 08/28/21 08:51 Atorvastatin 10 Mg Tablet PO 10 mg DAILY KAYLA Administration Enoxaparin Sodium 40 mg 08/26/21 09:00 08/28/21 08:51 Enoxaparin 40 Mg/0.4 Ml Syringe SUB-Q 40 mg DAILY KAYLA Administration Lorazepam 0.5 mg 08/25/21 14:32 08/27/21 04:49 Lorazepam Inj (*Crx) 2 Mg/Ml Vial IV PUSH 0.5 mg Q6H PRN Administration Anxiety Meclizine HCl 25 mg 08/26/21 17:00 08/28/21 08:51 Meclizine Hcl 25 Mg Tablet PO 25 mg BID KAYLA Administration Nicotine 1 patch 08/25/21 15:00 08/28/21 08:51 Nicotine (*Pbkc) 21 Mg Patch TRANSDERM 1 patch QAM KAYLA Administration Nicotine Polacrilex 4 mg 08/27/21 09:42 08/28/21 04:36 Nicotine (*Pbkc) 4 Mg Gum PO 4 mg PRN PRN Administration Nicotine Cravings Perflutren Lipid Microsphere 0 ml 08/25/21 14:27 Perflutren Lipid Microspheres 1.5 Ml Vial Diluted To 10 Ml Total Volume IV PUSH ONCE PRN adequate visualization Protocol Perflutren Lipid Microsphere 0 ml 08/26/21 07:17 Perflutren Lipid Microspheres 1.5 Ml Vial Diluted To 10 Ml Total Volume IV PUSH ONCE PRN adequate visualization Protocol Polyethylene Glycol 17 gm 08/27/21 09:45 08/28/21 08:51 Polyethylene Glycol 3350 17 Gm Powd.Pack PO 17 gm QAM KAYLA Administration Senna/Docusate Sodium 1 tab 08/27/21 09:45 08/28/21 08:51 Senna/Docusate Sodium Tablet PO 1 tab DAILY KAYLA Administration Radiology Results: ITS Impressions Abdomen/Pelvis CT 08/25/21 09:26 IMPRESSION: 1. Fecal impaction of the rectum. 2. 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 3. Probable small cystic lesions of the pancreas. The differential diagnosis includes pseudocyst, intraductal papillary mucinous neoplasm (IPMN), mucinous cystic neoplasm (MCN), and the less common serous cystadenoma and neuroendocrine tumor. Correlate for history of pancreatitis. Follow-up pancreas protocol CT or MRI in two years is recommended. 4. Indeterminate burst fractures of T12 and L1. Head CT 08/25/21 11:19 IMPRESSION: 1. No acute intracranial abnormality. 2. Age related findings. Carotid Doppler Study 08/26/21 07:02 IMPRESSION: 1. <50% stenosis in the right inte
[2021-08-28 12:53] LABS: EDCOVIDSCREEN Negative (Negative)
[2021-08-28 14:00] VITALS: BP 137/60; PULSE 68; RESP 14; TEMP 37.1; O2SAT 96
--- NOTE | 2021-08-28 14:53 | PCOTNOTE ---
The OT treatment was unable to be completed 08/28/21. Will continue plan of care.
--- NOTE | 2021-08-28 15:47 | P.DS_ITS ---
DS: Admitting Diagnosis Discharge Date 08/28/21 Admitting Diagnosis TIA DS: Discharge Diagnosis Discharge Diagnosis (1) TIA (transient ischemic attack): Code(s): G45.9 - Transient cerebral ischemic attack, unspecified Status: Acute Assessment and Plan: Patient presented with episode of left sided mouth drooping. 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 * She was evaluated by Neurology during admission * Symptoms felt to be consistent with TIA. ABCD2 score = 3. * Lipid panel reviewed. Continue atorvastatin * Continue aspirin 81 mg daily (2) Dementia: Code(s): F03.90 - Unspecified dementia without behavioral disturbance Status: Acute Assessment and Plan: Patient A&Ox2 * Had recently moved with her daughter who reports she was no longer able to care for her at home any longer and her needs would be better met at nursing facility * She is not on medications for dementia as she took herself off of these. * Pt accepted to [facility]. (3) Constipation: Qualifiers: Constipation type: unspecified constipation type Qualified Code(s): K59.00 - Constipation, unspecified Code(s): K59.00 - Constipation, unspecified Status: Acute Assessment and Plan: She presented with abdominal pain and nausea. * CT abdomen/pelvis showed fecal impaction of rectum * Resolved. Patient had a large bowel movement in the ED and her symptoms resolved. * Bowel regimen initiated: Miralax daily and Colace BID (4) BPPV (benign paroxysmal positional vertigo): Code(s): H81.10 - Benign paroxysmal vertigo, unspecified ear Status: Acute Assessment and Plan: Patient complained of dizziness, felt to be most consistent with BPPV. * Trial of meclizine improved symptoms * Continue meclizine as needed * Orthostatic vital signs negative. (5) Burst fracture of T12 vertebra: Code(s): S22.081A - Stable burst fracture of T11-T12 vertebra, initial encounter for closed fracture Status: Acute Assessment and Plan: CT a/p showed indeterminate burst fracture of T12 and L1 * Patient was asymptomatic * Supportive care * She will be fitted for TLSO brace at her nursing facility * Continue PT/OT at SNF (6) Abdominal aortic aneurysm: Code(s): I71.4 - Abdominal aortic aneurysm, without rupture Status: Acute Assessment and Plan: CT a/p revealed 3.8 cm fusiform aneurysm of the infrarenal abdominal aorta. * Follow up in 2 years for continued monitoring (7) Abnormal CT of the abdomen: Code(s): R93.5 - Abnormal findings on diagnostic imaging of other abdominal regions, including retroperitoneum Status: Acute Assessment and Plan: CT showed small cystic lesion of pancreas. * Lipase within normal limits * Recommend repeat imaging in [address] or MRI for monitoring * Follow up for screening for AAA and pancreatic cyst can be completed together in 2 years. DS: Summary Hospital Course Hospital Course: Date of admission: 08/25/2021 Date of discharge: 08/28/2021 Jewels Lewis is a 75 year old female with a history of dementia and CAD who presented to t
--- NOTE | 2021-08-28 15:47 | PM.DS ---
DS: Admitting Diagnosis Discharge Date 08/28/21 Admitting Diagnosis TIA DS: Discharge Diagnosis Discharge Diagnosis (1) TIA (transient ischemic attack): Code(s): G45.9 - Transient cerebral ischemic attack, unspecified Status: Acute Assessment and Plan: Patient presented with episode of left sided mouth drooping. 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 She was evaluated by Neurology during admission Symptoms felt to be consistent with TIA. ABCD2 score = 3. Lipid panel reviewed. Continue atorvastatin Continue aspirin 81 mg daily (2) Dementia: Code(s): F03.90 - Unspecified dementia without behavioral disturbance Status: Acute Assessment and Plan: Patient Kelly Had recently moved with her daughter who reports she was no longer able to care for her at home any longer and her needs would be better met at nursing facility She is not on medications for dementia as she took herself off of these. Pt accepted to [facility]. (3) Constipation: Qualifiers: Constipation type: unspecified constipation type Qualified Code(s): K59.00 - Constipation, unspecified Code(s): K59.00 - Constipation, unspecified Status: Acute Assessment and Plan: She presented with abdominal pain and nausea. CT abdomen/pelvis showed fecal impaction of rectum Resolved. Patient had a large bowel movement in the ED and her symptoms resolved. Bowel regimen initiated: Miralax daily and Colace BID (4) BPPV (benign paroxysmal positional vertigo): Code(s): H81.10 - Benign paroxysmal vertigo, unspecified ear Status: Acute Assessment and Plan: Patient complained of dizziness, felt to be most consistent with BPPV. Trial of meclizine improved symptoms Continue meclizine as needed Orthostatic vital signs negative. (5) Burst fracture of T12 vertebra: Code(s): S22.081A - Stable burst fracture of T11-T12 vertebra, initial encounter for closed fracture Status: Acute Assessment and Plan: CT a/p showed indeterminate burst fracture of T12 and L1 Patient was asymptomatic Supportive care She will be fitted for TLSO brace at her nursing facility Continue PT/OT at SNF (6) Abdominal aortic aneurysm: Code(s): I71.4 - Abdominal aortic aneurysm, without rupture Status: Acute Assessment and Plan: CT a/p revealed 3.8 cm fusiform aneurysm of the infrarenal abdominal aorta. Follow up in 2 years for continued monitoring (7) Abnormal CT of the abdomen: Code(s): R93.5 - Abnormal findings on diagnostic imaging of other abdominal regions, including retroperitoneum Status: Acute Assessment and Plan: CT showed small cystic lesion of pancreas. Lipase within normal limits Recommend repeat imaging in [address] or MRI for monitoring Follow up for screening for AAA and pancreatic cyst can be completed together in 2 years. DS: Summary Hospital Course Hospital Course: Date of admission: 08/25/2021 Date of discharge: 08/28/2021 Jewels Lewis is a 75 year old female with a history of dementia and CAD who presented to the emergency department on 08/25/2021 with complaints of nausea, vomiting, and constipation. On presentation to the ED, vital signs were stable, laboratory workup unremarkable, CT of the abdomen/pelvis showed fecal impaction and head CT showed no acute findings. She did have dizziness and facial droop and was admitted to the hospitalist service for further evaluation management, seen in consultation by Neurology. Will continue aspirin and atorvastatin for TIA. Her dizz
== END 2021-08-28 17:08 ==
LOC: ANHED 10:08 → ANH2MED 13:22
PROVIDERS: Nurse Practitioner; Nurse Practitioner Adult Health; Physician Assistant; Admitting Provider Hospitalist; Emergency Provider Emergency Medicine; PCP Internal Medicine; Visit Provider Internal Medicine
DX: G45.9 Transient cerebral ischemic attack, unspecified (principal); R11.2 Nausea with vomiting, unspecified; K59.00 Constipation, unspecified; R42 Dizziness and giddiness; I25.10 Atherosclerotic heart disease of native coronary artery without angina pectoris; F03.90 Unspecified dementia, unspecified severity, without behavioral disturbance, psychotic disturbance, mood disturbance, and anxiety; F17.210 Nicotine dependence, cigarettes, uncomplicated; Z96.649 Presence of unspecified artificial hip joint; S22.081A Stable burst fracture of T11-T12 vertebra, initial encounter for closed fracture; I71.4 Abdominal aortic aneurysm, without rupture; K86.2 Cyst of pancreas; Z20.822 Contact with and (suspected) exposure to COVID-19
CPT/HCPCS: 36415; 70450; 70553; 74176; 80048; 80053; 80061; 81003; 83605; 83690; 83735; 85025; 87426; 92526; 92610; 92611; 93005; 93306; 93880; 96361; 96372; 96374; 96375; 97110; 97161; 97165; 97530; 97535; 99285; A9270; A9577; C9803; G0378; J0131; J1650; J2060; J2405; J2765; J7030; J7040